=== PATIENT | male | born 1950 | race Caucasian/White ===

== ENCOUNTER → 2019-08-21 17:21 | Outpatient (BNVA) | payer MEDICARE, BC, SELFPAY | PROVIDERS: Family Provider Nurse Practitioner Family; PCP Nurse Practitioner Family; Visit Provider Nurse Practitioner Family | DX: M10.9 Gout, unspecified (principal); Z12.5 Encounter for screening for malignant neoplasm of prostate; J30.89 Other allergic rhinitis; I71.9 Aortic aneurysm of unspecified site, without rupture; E78.5 Hyperlipidemia, unspecified | CPT/HCPCS: 84550; G0103 ==

== ENCOUNTER → 2020-08-13 10:38 | Outpatient (BNVA) | payer MEDICARE, BC, SELFPAY | PROVIDERS: Family Provider Nurse Practitioner Family; PCP Nurse Practitioner Family; Visit Provider Family Medicine | DX: E78.5 Hyperlipidemia, unspecified (principal); I10 Essential (primary) hypertension; M10.00 Idiopathic gout, unspecified site; J30.89 Other allergic rhinitis | CPT/HCPCS: 80053; 80061; 84443; G0103 ==